=== PATIENT | female | born 1970 | race Caucasian/White ===

== ENCOUNTER → 2017-06-07 | Outpatient (CLI) | payer OTHER, MEDICAID ==
[2014-05-25 15:58] VITALS: BP 123/95
--- NOTE | 2017-06-07 09:28 | RAD ---
Examination: Right knee, four views History: Knee pain Findings: Arthroplasty components are present, related anatomically without evidence for displacement , fracture, loosening or hardware abnormality. The periarticular soft tissues are unremarkable. Impression: Status post right TKA; no abnormality demonstrated. Reported By:
--- NOTE | 2017-06-07 09:31 | RAD ---
HISTORY: Sciatica. Status post fall 6 months prior. Study: Lumbar spine with obliques Comparison: None Findings: Five lumbar type vertebra present. No pars defects are identified. The vertebral bodies and interve rtebral disc spaces are of normal height. The patient appears to be status post cholecystectomy. Th e sacroiliac joints are intact. IMPRESSION: 1. Negative radiographs of the lumbar spine. Reported By:
--- NOTE | 2017-06-07 09:32 | RAD ---
Examination: Right hip, two views History: Pain, history of fall Findings: No evidence for fracture or dislocation, bone destruction or pathologic soft tissue calcifi cation. The joint space is not significantly narrowed or deformed. The femoral head is in normal posi tion. Impression: No acute or significant findings. Reported By:
== END ==
LOC: RAD 08:46
PROVIDERS: ATTEND Specialist
DX: M54.31 Sciatica, right side (principal)
CPT/HCPCS: 72110; 73501; 73564

== ENCOUNTER → 2017-06-16 | Outpatient (CLI) | payer OTHER, MEDICAID ==
[2014-05-25 15:58] VITALS: BP 123/95
--- NOTE | 2017-06-16 15:50 | CT ---
Examination: CT of the lumbar spine. Clinical history: Lower back pain radiating into right leg. Technique: Multiple axial images were obtained from the level of T11-T12 down to the sacrum. Sagittal and coronal reformatted images were also obtained. Dose reduction techniques including automated exp osure control (AEC) and adjustment of mA and kV were utilized. Comparison: X-rays of the lumbar spine dated 06/07/2017. Findings: The vertebral body alignment is within normal limits. There is narrowing of the L5-S1 intervertebral disc space. No acute fracture, dislocation, or destructive bony lesion is noted. Minimal vertebral body osteophytosis is noted at the L3-L4 and L4-L5 levels. There is a 2.6 cm exophytic low-density mass associated with the mid to upper pole of the right kidne y, probably representing a benign cyst. Without the intravenous administration of contrast proper alessandra racterization of this lesion is not possible. Small 3 mm nonobstructing calculi are seen associated w ith the mid and lower pole of the left kidney. Surgical clips are noted in the gallbladder fossa cons istent with a prior cholecystectomy. L1-L2: Unremarkable. L2-L3: Unremarkable. L3-L4: There is a minor broad-based bulge of the annulus fibrosis, minimally encroaching on the ventr al aspect of the thecal sac and causing minor bilateral neural foraminal narrowing. No central canal stenosis is noted. L4-L5: There is a mild broad-based bulge of the annulus fibrosis, mildly encroaching on the ventral a spect of the thecal sac and causing minor bilateral neural foraminal narrowing. Mild facet joint dege nerative changes are noted bilaterally, with the combination of findings resulting in a mild central canal stenosis. L5-S1: There is a broad-based bulge of the annulus fibrosis encroaching on the ventral aspect of the thecal sac, as well as the exiting S1 nerve roots bilaterally and causing moderate bilateral neural f oraminal narrowing. Mild facet joint degenerative changes are noted bilaterally without central canal stenosis. Impression: 1. Multilevel disc degenerative and facet joint degenerative changes resulting in neural foraminal na rrowing and central canal stenosis, as described above. 2. There is a 2.6 cm exophytic low-density mass associated with the mid to upper pole of the right ki dney, probably representing a benign cyst. Without the intravenous administration of contrast proper characterization of this lesion is not possible. 3. Small 3 mm nonobstructing calculi are seen associated with the mid and lower pole of the left kidn ey. 4. There are postsurgical changes from a prior cholecystectomy. Reported By:
== END ==
LOC: RAD 13:50
PROVIDERS: ATTEND Orthopaedic Surgery
DX: M51.37 Other intervertebral disc degeneration, lumbosacral region (principal)
CPT/HCPCS: 72131

== ENCOUNTER 2017-06-17 09:12 | Day surgery (SDC) | payer OTHER, MEDICAID ==
[2017-06-17] MEDS ORDERED: MARCAINE 0.5% ONE ×2 (09:22→10:10)
[2017-06-17] MEDS: KENALOG INJ 40 MG IM ONE ×2 (09:27→09:55)
[2017-06-17] MEDS: XYLOCAINE-MPF 1% ONE ×2 (09:28→09:55)
--- NOTE | 2017-06-17 09:46 | DR.UPDATE ---
H&P Update History and Physical Update: History and Physical reviewed and patient examined. Changes noted: NO Yes with the following:Agree with H&P from Dr Neville. Will proceed with right SI joint injection.
[2017-06-17 10:13] VITALS: BP 124/74
== END 2017-06-17 10:16 | disposition home or self-care (01) ==
LOC: SURG1 09:12
PROVIDERS: ATTEND Orthopaedic Surgery
PROC: 3E0U3BZ Introduction of Anesthetic Agent into Joints, Percutaneous Approach (ICD-10-PCS; principal; 2017-06-17 09:00)
PROC: 3E0U33Z Introduction of Anti-inflammatory into Joints, Percutaneous Approach (ICD-10-PCS; principal; 2017-06-17 09:00)
DX: M13.88 Other specified arthritis, other site (principal)
CPT/HCPCS: 20610; 76000; S0020; J3301

== ENCOUNTER 2017-06-22 09:29 | Emergency (ER) | payer OTHER, MEDICAID ==
[2017-06-22 09:35] VITALS: BP 124/75; BMI 23.8
[2017-06-22] MEDS ORDERED: NS 1000 ML 1,000 ML ONE (09:46)
[2017-06-22] MEDS ORDERED: NS 1000 ML 1,000 ML IV ONE (09:47)
--- NOTE | 2017-06-22 09:48 | DR.GENAD ---
HPI - PCP Primary Care Physician: lanie goel - Complaint/Symptoms Chief Complaint Doctors Comments: Patient presents with complain of vomiting and diarrhea associated with chills that started on last night. Chief Complaint:: patient stated she has been vomiting since last night and diarrhea this morning. - Source History Provided: Patient - Mode of Arrival Mode of Arrival: Ambulatory - Timing Onset of Chief Complaint: 06/22/17 PMH - PMH Past Medical History: Yes Past Medical History: Depression, Kidney Stones Past Surgical History: Yes Surgical History: Cholecystectomy, Ortho Surgery - Family History History of Family Medical Conditions: Yes Family Medical History: Cancer, [place], Hypertension - Social History Does patient currently use any type of tobacco product: Yes Have you used tobacco products in the last 12 months: Yes Type of Tobacco Use: Cigarettes How many years tobacco product used: 3 Does any household member use tobacco: No Alcohol Use: None Do you use any recreational Drugs:: No Lives With: Family Lives Where: Home - infectious screening In the last 2 months have you had wt loss of >10#?: NO Have you had fever, night sweats or hemotysis?: No Have you traveled outside the country in the last 6 months?: No Isolation: Standard ROS - Review of Systems Eyes: No Symptoms Reported ENTM: No Symptoms Reported Respiratoy: No Symptoms Reported Cardiovascular: No Symptoms Reported, Palpitations Gastrointestinal/Abdominal: No Symptoms Reported Genitourinary: No Symptoms Reported Neurological: No Symptoms Reported Musculoskeletal: No Symptoms Reported Hematologic/Lymphatic: No Symptoms Reported Endocrine: No Symptoms Reported Psychiatric: No Symptoms Reported All Other Systems: Reviewed and Negative PE - Vital Signs Vitals: Temperature 98.7 F Pulse Rate 70 Respiratory Rate 16 Blood Pressure 124/75 O2 Sat by Pulse Oximetry 100 - General Limitations: No Limitations General Appearance: Alert, In No Apparent Distress - Head Head Exam: Normal Inspection, Atraumatic - Eyes Eye exam: Normal Appearance, PERRL, EOMI - ENT ENT Exam: Normal Exam External Ear Exam: Normal External Inspection TM/Canal Exam: Bilateral Normal Nose Exam: Normal Nose Exam, Sinus Tenderness Mouth Exam: Normal Inspection Throat Exam: Normal Inspection - Neck Neck Exam: Normal Inspection - Chest Chest Inspection: Normal Inspection - Respiratory Respiratory Exam: Normal Lung Sounds Bilat Respiratory Exam: Bilateral Clear to Auscultation - Cardiovascular Cardiovascular Exam: Regular Rate, Normal Rhythm - Abdominal Exam Abdominal Exam: Normal Inspection Abdominal Tenderness: negative: RUQ, RLQ, LUQ, LLQ, Epigastrium, Suprapubic, Diffuse, Mild, Moderate, Severe, Other - Extremities Extremities Exam: Normal Inspection, Full ROM - Back Back Exam: Normal Inspection, Full ROM - Neurologic Neurological Exam: Alert, Oriented X3, CN II-XII Intact - Psychiatric Psychiatric Exam: Normal Affect - Skin Skin Exam: Warm, Dry, Intact Course - Reevaluation 1st: Improved ROR - Labs Reviewed Laboratory Results Reviewed?: Yes (Influenza Like Illness; Test negative) Result Diagrams: 06/22/17 09:50 06/22/17 09:50 Laboratory: WBC 11.4 X10^3/uL (3.6-10.0) H 06/22/17 09:50 RBC 4.89 X10^6/uL (3.5-5.4) 06/22/17 09:50 Hgb 15.1 g/dL (12.0-16.0) 06/22/17 09:50 Hct 43.0 % (36.0-47.0) 06/22/17 09:50 MCV 88.0 fL (80.0-100.0) 06/22/17 09:50 MCH 30.8 pg (27.0-34.0) 06/22/17 09:50 MCHC 35.0 g/dL (33.0-35.0) 06/22/17 09:50 RDW 16.6 % (11.6-16.5) H 06/22/17 09:50 Plt Count 192 X10^3/uL (150.0-450.0) 06/22/17 09:50 MPV 10.8 fL (7.4-11.0) 06/22/17 09:50 Neut % 83.1 % (42.0-75.0) H 06/22/17 09:50 Lymph % 11.5 % (21.0-51.0) L 06/22/17 09:50 [place] % 4.2 % (0.0-13.0) 06/22/17 09:50 Eos % 0.6 % (0.9-2.9) L 06/22/17 09:50 Baso % 0.6 % (0.2-1.0) 06/22/17 09:50 Neut # 9.5 x10^3/uL (2.2-4.8) H 06/22/17 09:50 Lymph # 1.3 X10^3/uL (1.3-2.9) 06/22/17 09:50 [place] # 0.5 x10^3/uL (0.3-0.8) 06/22/17 09:50 Eos # 0.1 x10^3/uL (0.0-0.2) 06/22/17 09:50 Baso # 0.1 X10^3/uL (0.0-0.1) 06/22/17 09:50 Absolute Nucleated RBC 0.0 /100WBC 06/22/17 09:50 Sodium 142 mmol/L (136-145) 06/22/17 09:50 Corrected Sodium 143 mmol/L (136-145) 06/22/17 09:50 Potassium 3.7 mmol/L (3.5-5.1) 06/22/17 09:50 Chloride 104 mmol/L (98-107) 06/22/17 09:50 Carbon Dioxide 24.3 mmol/L (21-32) 06/22/17 09:50 BUN 27 mg/dL (7-18) H 06/22/17 09:50 Creatinine 1.02 mg/dL (0.55-1.02) 06/22/17 09:50 Est GFR (MDRD) Af Amer > 60 (>60) 06/22/17 09:50 Est GFR (MDRD) Non-Af > 60 (>60) 06/22/17 09:50 Glucose 139 mg/dL (65-99) H 06/22/17 09:50 Calcium 10.0 mg/dL (8.5-10.1) 06/22/17 09:50 Corrected Calcium TNP 06/22/17 09:50 Total Bilirubin 0.70 mg/dL (0.2-1.0) 06/22/17 09:50 AST 10 Units/L (15-37) L 06/22/17 09:50 ALT 45 Units/L (12-78) 06/22/17 09:50 Alkaline Phosphatase 142 Units/L (46-116) H 06/22/17 09:50 Total Protein 8.2 g/dL (6.4-8.2) 06/22/17 09:50 Albumin 4.0 g/dL (3.4-5.0) 06/22/17 09:50 Globulin 4.2 g/dL (2.5-4.5) 06/22/17 09:50 Albumin/Globulin Ratio 1.0 Ratio (1.1-2.1) L 06/22/17 09:50 Influenza Type A (PCR) Negative (NEGATIVE) 06/22/17 09:50 Influenza Type B (PCR) Negative (NEGATIVE) 06/22/17 09:50 - Diagnosis Discharge Problem: Influenza-like symptoms, Acute gastroenteritis - Discharge Plan Condition: Stable - Follow ups/Referrals Follow ups/Referrals: GRAEME GOEL [Primary Care Provider] - 3 days - Instructions
[2017-06-22 10:02] LABS: BASOPHILS # (AUTO) 0.1 X10^3/uL (0.0-0.1); BASOPHILS % (AUTO) 0.6 % (0.2-1.0); EOSINOPHILS # (AUTO) 0.1 x10^3/uL (0.0-0.2); EOSINOPHILS % (AUTO) 0.6 % (0.9-2.9); HEMOGLOBIN 15.1 g/dL (12.0-16.0); LYMPHOCYTES # (AUTO) 1.3 X10^3/uL (1.3-2.9); LYMPHOCYTES % (AUTO) 11.5 % (21.0-51.0); MEAN CORPUSCULAR HEMOGLOBIN 30.8 pg (27.0-34.0); MEAN PLATELET VOLUME 10.8 fL (7.4-11.0); MONOCYTES # (AUTO) 0.5 x10^3/uL (0.3-0.8); MONOCYTES % (AUTO) 4.2 % (0.0-13.0); NEUTROPHILS # (AUTO) 9.5 x10^3/uL (2.2-4.8); NEUTROPHILS % (AUTO) 83.1 % (42.0-75.0); PLATELET COUNT 192 X10^3/uL (150.0-450.0); RED BLOOD COUNT 4.89 X10^6/uL (3.5-5.4); RED CELL DISTRIBUTION WIDTH 16.6 % (11.6-16.5); WHITE BLOOD COUNT 11.4 X10^3/uL (3.6-10.0)
[2017-06-22 10:19] LABS: ALANINE AMINOTRANSFERASE 45 Units/L (12-78); ALKALINE PHOSPHATASE 142 Units/L (46-116); ASPARTATE AMINO TRANSFERASE 10 Units/L (15-37); BLOOD UREA NITROGEN 27 mg/dL (7-18); CARBON DIOXIDE 24.3 mmol/L (21-32); CHLORIDE 104 mmol/L (98-107); COR NA(FOR HYPERGLY) 143 mmol/L (136-145); CREATININE 1.02 mg/dL (0.55-1.02); SODIUM 142 mmol/L (136-145); TOTAL PROTEIN 8.2 g/dL (6.4-8.2); eGFR BLACK RACES > 60 (>60); eGFR NON BLACK RACES > 60 (>60)
[2017-06-22] MEDS ORDERED: ZOFRAN INJ 4 MG VIAL IM ONE (10:21)
[2017-06-22] MEDS ORDERED: ZOFRAN INJ 4 MG VIAL ONE (10:27)
== END 2017-06-22 10:59 | disposition home or self-care (01) ==
LOC: ER 09:41
DX: K52.89 Other specified noninfective gastroenteritis and colitis (principal); J11.1 Influenza due to unidentified influenza virus with other respiratory manifestations
CPT/HCPCS: 36415; 80053; 85025; 87502; 96365; 96372; 99282; 99283; A4222; J2405